=== PATIENT | female | born 1940 | race African-American/Black ===

== ENCOUNTER 2018-06-03 06:31 | Observation (INO) ==
[2018-05-30 12:48] LABS: Basophils % 0.1 % (0.0-0.8); Eosinophils # 0.1 10*3/uL (0.0-0.87); Eosinophils % 1.2 % (0.00-10.9); Hematocrit 33.8 VOL% (35.7-47.0); Hemoglobin 10.8 GM/DL (12.0-16.0); Immature Granulocytes % 0.3 %; Immature Granulocytes Absolute 0.02 #; Lymphocytes # 2.2 10*3/uL (1.4-4.0); Lymphocytes % 29.3 % (21.3-54.2); Mean Corpuscular Hemoglobin 26 PG (27-34); Mean Platelet Volume 10.7 FL (9.6-12.0); Monocytes # 0.8 10*3/uL (0.11-0.8); Monocytes % 10.1 % (1.7-12.7); Neutrophils # 4.4 10*3/uL (1.4-7.4); Platelet Count 287 T/CUMM (130-400); Red Blood Count 4.12 MC/CUMM (3.8-5.5); Red Cell Distribution Width 14.6 % (9.3-17.3); White Blood Count 7.4 T/CUMM (4-12)
[2018-05-30 12:56] LABS: PT Patient Result 10.7 SECS
[2018-05-30 13:20] LABS: Bilirubin,Total 0.5 MG/DL (0.2-1.0); Calcium 8.8 MG/DL (8.5-10.1); Osmolality,Calculated 282.1 MOS/KG (273-304); Potassium 4.2 MMOL/L (3.5-5.1); Total Protein 8.1 G/DL (6.4-8.3)
[2018-06-03] MEDS ORDERED: HEPARIN 5,000 UNIT/1 ML VIAL IV ONE (07:24)
[2018-06-03] MEDS ORDERED: ONDANSETRON 4 MG/2 ML VIAL IV ONE (07:24)
[2018-06-03] MEDS ORDERED: MIDAZOLAM 2 MG/2 ML VIAL IV ONE (07:24)
[2018-06-03] MEDS ORDERED: fentaNYL 100 MCG/2 ML VIAL IV ONE (07:24)
[2018-06-03] MEDS ORDERED: DIAZEPAM 5 MG TABLET PO ONE (07:24)
[2018-06-03] MEDS ORDERED: DIAZEPAM 5 MG TABLET ONE (07:41)
[2018-06-03] MEDS ORDERED: ACETYLCYSTEINE 600 MG CAPSULE ONE (07:44)
[2018-06-03] MEDS: ACETYLCYSTEINE 600 MG CAPSULE PO SCH ×2 (07:47→21:20)
[2018-06-03] MEDS: LACTATED RINGERS 1,000 ML IV SCH ×3 (08:00→22:22)
[2018-06-03] MEDS ORDERED: HEPARIN/NACL 0.9% 2 UNITS/ML 2,000 ML IV ONE (08:45)
[2018-06-03] MEDS ORDERED: fentaNYL 100 MCG/2 ML VIAL ONE (09:32)
[2018-06-03] MEDS ORDERED: MIDAZOLAM 2 MG/2 ML VIAL ONE (09:32)
[2018-06-03] MEDS ORDERED: HEPARIN 5,000 UNIT/1 ML VIAL ONE (09:32)
[2018-06-03] MEDS ORDERED: DEXTROSE 50% 25 GM/50 ML VIAL IV PRN ×2 (10:43→16:05)
[2018-06-03] MEDS ORDERED: GLUCAGON 1 MG VIAL IM PRN ×2 (10:43→16:05)
[2018-06-03] MEDS: INSULIN LISPRO 100 UNIT/ML SUBCUT SCH ×2 (17:44→21:21)
[2018-06-03] MEDS ORDERED: METFORMIN HCL PO SCH (21:00)
[2018-06-03] MEDS ORDERED: TRAVOPROST 0.004% OPH SOLN 2.5 ML BOTTLE BOTH EYES SCH (21:00)
[2018-06-03] MEDS ORDERED: CANAGLIFLOZIN PO SCH (21:00)
[2018-06-03] MEDS ORDERED: [UNRECOGNIZED DRUG - OTHER] PO SCH (21:00)
[2018-06-03] MEDS ORDERED: INSULIN GLARGINE 100 UNIT/ML SUBCUT SCH (21:00)
[2018-06-03] MEDS ORDERED: amLODIPine 10 MG TABLET PO SCH (21:00)
[2018-06-04] MEDS: LACTATED RINGERS 1,000 ML IV SCH ×3 (02:25→08:08)
[2018-06-04 07:10] LABS: Calcium 8.9 MG/DL (8.5-10.1); Osmolality,Calculated 281.4 MOS/KG (273-304); Potassium 3.9 MMOL/L (3.5-5.1)
[2018-06-04] MEDS: INSULIN LISPRO 100 UNIT/ML SUBCUT SCH (08:04)
[2018-06-04] MEDS: ACETYLCYSTEINE 600 MG CAPSULE PO SCH (08:07)
[2018-06-04] MEDS ORDERED: FERROUS SULFATE 325 MG TABLET PO SCH (09:00)
[2018-06-04] MEDS ORDERED: glipiZIDE 5 MG TABLET PO SCH (09:00)
[2018-06-04] MEDS ORDERED: ATORVASTATIN 20 MG TABLET PO SCH (09:00)
[2018-06-04] MEDS ORDERED: POTASSIUM CHLORIDE 20 MEQ TABLET PO SCH (09:00)
[2018-06-04 09:21] VITALS: BP 156/100
[2018-06-04] MEDS ORDERED: NON-FORMULARY MEDICATION (Alendronate Sodium [Fosamax] 70 MG) PO SCH (16:15)
[2018-06-10] MEDS ORDERED: ERGOCALCIFEROL 50,000 UNIT CAPSULE PO SCH (09:00)
== END 2018-06-04 11:05 | disposition home or self-care (01) ==
LOC: N.RAD 06:31 → N.3E 06:31
PROVIDERS: ADMIT Surgery; ATTEND Surgery

== ENCOUNTER 2018-06-15 08:25 | Inpatient (IN) ==
[2018-06-15 10:46] LABS: Basophils % 0.3 % (0.0-0.8); Eosinophils # 0.1 10*3/uL (0.0-0.87); Eosinophils % 1.3 % (0.00-10.9); Hematocrit 33.6 VOL% (35.7-47.0); Hemoglobin 10.8 GM/DL (12.0-16.0); Immature Granulocytes % 0.4 %; Immature Granulocytes Absolute 0.04 #; Lymphocytes # 2.1 10*3/uL (1.4-4.0); Lymphocytes % 22.7 % (21.3-54.2); Mean Corpuscular HGB Conc 32.1 GM/DL (32-36); Mean Corpuscular Hemoglobin 26 PG (27-34); Mean Corpuscular Volume 80.8 FL (87-102); Monocytes # 0.7 10*3/uL (0.11-0.8); Neutrophils # 6.2 10*3/uL (1.4-7.4); Neutrophils % 67.3 % (38.7-73.9); Platelet Count 407 T/CUMM (130-400); Red Blood Count 4.16 MC/CUMM (3.8-5.5); Red Cell Distribution Width 14.2 % (9.3-17.3); White Blood Count 9.2 T/CUMM (4-12)
[2018-06-15] MEDS ORDERED: DEXTROSE 50% 25 GM/50 ML VIAL IV PRN ×2 (10:55→12:59)
[2018-06-15] MEDS ORDERED: GLUCAGON 1 MG VIAL IM PRN ×2 (10:55→12:59)
[2018-06-15 11:12] LABS: Calcium 8.7 MG/DL (8.5-10.1); Osmolality,Calculated 282.7 MOS/KG (273-304)
[2018-06-15 11:19] LABS: Lactic Acid 1.2 MMOL/L (0.4-2.0)
[2018-06-15] MEDS ORDERED: HYDROmorphone 2 MG/1 ML VIAL IV PRN (12:59)
[2018-06-15] MEDS ORDERED: ONDANSETRON 4 MG/2 ML VIAL IV PRN (12:59)
[2018-06-15] MEDS ORDERED: PROMETHAZINE 25 MG/1 ML VIAL IM PRN (12:59)
[2018-06-15] MEDS ORDERED: ACETAMINOPHEN 325 MG TABLET PO PRN (12:59)
[2018-06-15] MEDS: SODIUM CHLORIDE 0.9% 1,000 ML IV SCH (14:40)
[2018-06-15] MEDS: INSULIN REGULAR 100 UNIT/ML SUBCUT SCH ×3 (15:48→20:42)
[2018-06-15] MEDS: TRAVOPROST 0.004% OPH SOLN 2.5 ML BOTTLE BOTH EYES SCH (20:42)
[2018-06-15] MEDS: amLODIPine 10 MG TABLET PO SCH (20:42)
[2018-06-15] MEDS: MEGESTROL 40 MG TABLET PO SCH (20:42)
[2018-06-16] MEDS: SODIUM CHLORIDE 0.9% 1,000 ML IV SCH (00:51)
[2018-06-16] MEDS: ENOXAPARIN 40 MG/0.4 ML SYRINGE SUBCUT SCH (05:33)
[2018-06-16 06:17] LABS: Basophils % 0.2 % (0.0-0.8); Eosinophils # 0.2 10*3/uL (0.0-0.87); Eosinophils % 2.2 % (0.00-10.9); Hematocrit 30.4 VOL% (35.7-47.0); Hemoglobin 9.8 GM/DL (12.0-16.0); Immature Granulocytes % 0.4 %; Immature Granulocytes Absolute 0.04 #; Lymphocytes # 2.9 10*3/uL (1.4-4.0); Lymphocytes % 30.4 % (21.3-54.2); Mean Corpuscular HGB Conc 32.2 GM/DL (32-36); Mean Corpuscular Hemoglobin 26 PG (27-34); Mean Corpuscular Volume 81.1 FL (87-102); Mean Platelet Volume 10.2 FL (9.6-12.0); Monocytes # 0.8 10*3/uL (0.11-0.8); Monocytes % 8.4 % (1.7-12.7); Neutrophils # 5.5 10*3/uL (1.4-7.4); Neutrophils % 58.4 % (38.7-73.9); Platelet Count 367 T/CUMM (130-400); Red Blood Count 3.75 MC/CUMM (3.8-5.5); Red Cell Distribution Width 14.3 % (9.3-17.3); White Blood Count 9.4 T/CUMM (4-12)
[2018-06-16 06:31] LABS: Calcium 8.5 MG/DL (8.5-10.1); Osmolality,Calculated 287.3 MOS/KG (273-304); Potassium 3.9 MMOL/L (3.5-5.1)
[2018-06-16] MEDS: INSULIN REGULAR 100 UNIT/ML SUBCUT SCH ×4 (07:24→21:02)
[2018-06-16] MEDS ORDERED: CLINDAMYCIN INJ 900 MG in PREMIX 1 EACH IV ONE (08:42)
[2018-06-16] MEDS: VALSARTAN/HCTZ 160-12.5 MG TABLET PO SCH (09:28)
[2018-06-16] MEDS: LOSARTAN/HCTZ 50-12.5 MG TABLET PO SCH (09:28)
[2018-06-16] MEDS ORDERED: ERGOCALCIFEROL 50,000 UNIT CAPSULE PO SCH (10:30)
[2018-06-16] MEDS ORDERED: ePHEDrine 50 MG/ML AMP ONE (10:56)
[2018-06-16] MEDS ORDERED: SODIUM CHLORIDE 0.9% 250 ML IV ONE (10:56)
[2018-06-16] MEDS ORDERED: KETAMINE 500 MG/10 ML VIAL ONE (10:56)
[2018-06-16] MEDS ORDERED: PROPOFOL 200 MG/20 ML VIAL IV ONE (10:56)
[2018-06-16] MEDS: FERROUS SULFATE 325 MG TABLET PO SCH (14:20)
[2018-06-16] MEDS: MEGESTROL 40 MG TABLET PO SCH ×2 (14:21→21:02)
[2018-06-16] MEDS: POTASSIUM CHLORIDE 20 MEQ TABLET PO SCH (14:21)
[2018-06-16] MEDS: PANTOPRAZOLE 40 MG TABLET PO SCH (14:21)
[2018-06-16] MEDS: ATORVASTATIN 20 MG TABLET PO SCH (14:21)
[2018-06-16] MEDS: amLODIPine 10 MG TABLET PO SCH (21:01)
[2018-06-16] MEDS: TRAVOPROST 0.004% OPH SOLN 2.5 ML BOTTLE BOTH EYES SCH (21:02)
[2018-06-17] MEDS: ENOXAPARIN 40 MG/0.4 ML SYRINGE SUBCUT SCH (03:52)
[2018-06-17] MEDS: INSULIN REGULAR 100 UNIT/ML SUBCUT SCH ×2 (07:02→13:10)
[2018-06-17] MEDS: VALSARTAN/HCTZ 160-12.5 MG TABLET PO SCH (10:13)
[2018-06-17] MEDS: ATORVASTATIN 20 MG TABLET PO SCH (10:14)
[2018-06-17] MEDS: POTASSIUM CHLORIDE 20 MEQ TABLET PO SCH (10:14)
[2018-06-17] MEDS: FERROUS SULFATE 325 MG TABLET PO SCH (10:14)
[2018-06-17] MEDS: LOSARTAN/HCTZ 50-12.5 MG TABLET PO SCH (10:14)
[2018-06-17] MEDS: MEGESTROL 40 MG TABLET PO SCH (10:15)
[2018-06-17] MEDS: PANTOPRAZOLE 40 MG TABLET PO SCH (10:16)
[2018-06-17 11:53] VITALS: BP 142/60
[2018-06-18] MEDS ORDERED: Alendronate Sodium [Fosamax] 70 MG PO SCH (10:30)
== END 2018-06-17 13:55 | disposition home health service (06) | DRG 256 ==
LOC: N.ED 08:25 → N.EDINP 10:26 → N.3E 12:55
PROVIDERS: ADMIT Surgery; ATTEND Surgery

== ENCOUNTER 2018-06-29 12:40 | Inpatient (IN) ==
[2018-06-29] MEDS ORDERED: GLUCAGON 1 MG VIAL IM PRN (15:06)
[2018-06-29] MEDS ORDERED: ACETAMINOPHEN 325 MG TABLET PO PRN (15:06)
[2018-06-29] MEDS ORDERED: ONDANSETRON 4 MG/2 ML VIAL IV PRN (15:06)
[2018-06-29] MEDS ORDERED: DEXTROSE 50% 25 GM/50 ML VIAL IV PRN (15:06)
[2018-06-29 17:08] LABS: Basophils % 0.1 % (0.0-0.8); Eosinophils # 0.1 10*3/uL (0.0-0.87); Eosinophils % 1.3 % (0.00-10.9); Hematocrit 29.7 VOL% (35.7-47.0); Hemoglobin 9.6 GM/DL (12.0-16.0); Immature Granulocytes % 0.4 %; Immature Granulocytes Absolute 0.04 #; Lymphocytes # 2.3 10*3/uL (1.4-4.0); Lymphocytes % 23.3 % (21.3-54.2); Mean Corpuscular HGB Conc 32.3 GM/DL (32-36); Mean Corpuscular Hemoglobin 25 PG (27-34); Mean Corpuscular Volume 77.7 FL (87-102); Mean Platelet Volume 9.3 FL (9.6-12.0); Monocytes # 0.9 10*3/uL (0.11-0.8); Monocytes % 8.9 % (1.7-12.7); Neutrophils # 6.4 10*3/uL (1.4-7.4); Platelet Count 575 T/CUMM (130-400); Red Blood Count 3.82 MC/CUMM (3.8-5.5); Red Cell Distribution Width 14.7 % (9.3-17.3); White Blood Count 9.7 T/CUMM (4-12)
[2018-06-29 17:27] LABS: Alanine Aminotransferase 13 U/L (13-56); Albumin 2.5 G/DL (3.4-5.0); Alkaline Phosphatase 69 U/L (45-117); Aspartate Amino Transferase 15 U/L (0-37); Bilirubin,Total < 0.39 MG/DL (0.2-1.0); Blood Urea Nitrogen 19 MG/DL (7-18); Glucose 155 MG/DL (74-106); Potassium 4.5 MMOL/L (3.5-5.1); Sodium 136 MMOL/L (136-145); Total Protein 7.4 G/DL (6.4-8.3)
[2018-06-29] MEDS: LACTATED RINGERS 1,000 ML IV SCH (18:42)
[2018-06-29] MEDS ORDERED: diphenhydrAMINE CAP 25 MG CAPSULE PO SCH (22:30)
[2018-06-29] MEDS: diphenhydrAMINE CAP 25 MG CAPSULE PO PRN (22:30)
[2018-06-30] MEDS: cefOXitin 2,000 MG in SYRINGE 1 EACH IV SCH ×2 (01:03→10:17)
[2018-06-30 06:08] LABS: Bilirubin,Total 0.6 MG/DL (0.2-1.0); Calcium 8.9 MG/DL (8.5-10.1); Osmolality,Calculated 279.8 MOS/KG (273-304); Potassium 4.2 MMOL/L (3.5-5.1); Total Protein 7.3 G/DL (6.4-8.3)
[2018-06-30 06:30] LABS: Apearance,Urine CLEAR (Clear); Bilirubin,Urine Negative (Negative); Blood, Urine Small mg/dL (Negative); Glucose,Urine (UA) >=500 mg/dL (Negative); Ketones,Urine Negative (Negative); Mucus,Urine Occasional /LPF (Occasional); Nitrite,Urine Negative (Negative); Protein,Urine Negative; RBC,Urine 5 /HPF (0-4); Squamous Epithelial Cell,Urine Occasional /HPF (0-10); Urine Color Yellow (Yellow); Urine Specific Gravity 1.021 (1.001-1.035); Urine Urobilinogen < 2.0 EU/DL (0.2-1.0); WBC,Urine 5 /HPF (0-6)
[2018-06-30] MEDS: LACTATED RINGERS 1,000 ML IV SCH ×2 (07:55→20:12)
[2018-06-30] MEDS: ENOXAPARIN 40 MG/0.4 ML SYRINGE SUBCUT SCH (08:31)
[2018-06-30] MEDS ORDERED: CIPROFLOXACIN INJ 400 MG in PREMIX 1 EACH IV SCH (10:30)
[2018-06-30] MEDS: PANTOPRAZOLE 40 MG TABLET PO SCH ×2 (10:35→13:41)
[2018-06-30] MEDS ORDERED: MORPHINE 4 MG/1 ML VIAL ONE (11:10)
[2018-06-30] MEDS ORDERED: MORPHINE 4 MG/1 ML VIAL IV PRN (12:08)
[2018-06-30] MEDS: glipiZIDE 5 MG TABLET PO SCH (13:40)
[2018-06-30] MEDS: FERROUS SULFATE 325 MG TABLET PO SCH (13:40)
[2018-06-30] MEDS: CLINDAMYCIN INJ 900 MG in PREMIX 1 EACH IV SCH ×2 (13:40→20:28)
[2018-06-30] MEDS: MEGESTROL 40 MG TABLET PO SCH ×2 (13:40→20:27)
[2018-06-30] MEDS: LOSARTAN/HCTZ 50-12.5 MG TABLET PO SCH (13:40)
[2018-06-30] MEDS: POTASSIUM CHLORIDE 20 MEQ TABLET PO SCH (13:40)
[2018-06-30] MEDS: ATORVASTATIN 20 MG TABLET PO SCH (13:41)
[2018-06-30] MEDS: INSULIN LISPRO 100 UNIT/ML SUBCUT SCH (17:24)
[2018-06-30] MEDS: PHENAZOPYRIDINE 95 MG TABLET PO SCH (17:24)
[2018-06-30] MEDS: amLODIPine 10 MG TABLET PO SCH (20:27)
[2018-06-30] MEDS: TRAVOPROST 0.004% OPH SOLN 2.5 ML BOTTLE BOTH EYES SCH (20:28)
[2018-07-01] MEDS: LACTATED RINGERS 1,000 ML IV SCH ×2 (03:39→13:21)
[2018-07-01] MEDS: CLINDAMYCIN INJ 900 MG in PREMIX 1 EACH IV SCH ×3 (03:39→20:42)
[2018-07-01 06:31] LABS: Basophils % 0.2 % (0.0-0.8); Eosinophils # 0.3 10*3/uL (0.0-0.87); Eosinophils % 2.8 % (0.00-10.9); Hematocrit 26.6 VOL% (35.7-47.0); Hemoglobin 8.5 GM/DL (12.0-16.0); Immature Granulocytes % 0.4 %; Immature Granulocytes Absolute 0.04 #; Lymphocytes # 3.1 10*3/uL (1.4-4.0); Lymphocytes % 29.7 % (21.3-54.2); Mean Corpuscular Hemoglobin 25 PG (27-34); Mean Corpuscular Volume 78.2 FL (87-102); Mean Platelet Volume 9.4 FL (9.6-12.0); Monocytes # 0.9 10*3/uL (0.11-0.8); Monocytes % 8.2 % (1.7-12.7); Neutrophils # 6.2 10*3/uL (1.4-7.4); Neutrophils % 58.7 % (38.7-73.9); Platelet Count 530 T/CUMM (130-400); Red Cell Distribution Width 14.8 % (9.3-17.3); White Blood Count 10.6 T/CUMM (4-12)
[2018-07-01 07:06] LABS: Calcium 8.5 MG/DL (8.5-10.1); Osmolality,Calculated 278.4 MOS/KG (273-304); Potassium 4.3 MMOL/L (3.5-5.1)
[2018-07-01 07:20] LABS: Risk Ratio 2.3; Thyroid Stimulating Hormone 1.73 uIU/ml (0.358-3.74)
[2018-07-01] MEDS: INSULIN LISPRO 100 UNIT/ML SUBCUT SCH ×2 (07:43→17:02)
[2018-07-01] MEDS: PHENAZOPYRIDINE 95 MG TABLET PO SCH ×2 (07:43→11:34)
[2018-07-01] MEDS: glipiZIDE 5 MG TABLET PO SCH (08:02)
[2018-07-01] MEDS: FERROUS SULFATE 325 MG TABLET PO SCH (08:02)
[2018-07-01] MEDS: POTASSIUM CHLORIDE 20 MEQ TABLET PO SCH (08:02)
[2018-07-01] MEDS: ATORVASTATIN 20 MG TABLET PO SCH (08:02)
[2018-07-01] MEDS: PANTOPRAZOLE 40 MG TABLET PO SCH (08:03)
[2018-07-01] MEDS: MEGESTROL 40 MG TABLET PO SCH (08:03)
[2018-07-01] MEDS: ENOXAPARIN 40 MG/0.4 ML SYRINGE SUBCUT SCH (08:03)
[2018-07-01] MEDS: LOSARTAN/HCTZ 50-12.5 MG TABLET PO SCH (08:29)
[2018-07-01] MEDS: MORPHINE 4 MG/1 ML VIAL IV PRN (08:29)
[2018-07-01] MEDS ORDERED: ERGOCALCIFEROL 50,000 UNIT CAPSULE PO SCH (09:00)
[2018-07-01] MEDS ORDERED: CIPROFLOXACIN INJ 400 MG in PREMIX 1 EACH IV SCH (09:00)
[2018-07-01] MEDS: GABAPENTIN 100 MG CAPSULE PO SCH ×2 (11:34→20:41)
[2018-07-01] MEDS ORDERED: TUBERCULIN SKIN TEST 0.1 ML SYRINGE INTRADERM ONE (12:00)
[2018-07-01] MEDS: cefTRIAXone 1,000 MG in SYRINGE 1 EACH IV SCH (13:22)
[2018-07-01] MEDS ORDERED: BUPIVACAINE MPF 0.25% 30 ML VIAL ONE (14:48)
[2018-07-01] MEDS ORDERED: LIDOCAINE 1% 20 ML VIAL ONE (14:48)
[2018-07-01] MEDS ORDERED: PROPOFOL 200 MG/20 ML VIAL IV ONE (15:48)
[2018-07-01] MEDS ORDERED: SEVOFLURANE 1 UNIT/15 MINUTE INH ONE (15:48)
[2018-07-01] MEDS ORDERED: fentaNYL 100 MCG/2 ML VIAL ONE (15:48)
[2018-07-01] MEDS ORDERED: DEXAMETHASONE 10 MG/1 ML VIAL ONE (15:49)
[2018-07-01] MEDS ORDERED: ONDANSETRON 4 MG/2 ML VIAL ONE (15:49)
[2018-07-01] MEDS: amLODIPine 10 MG TABLET PO SCH (20:41)
[2018-07-01] MEDS: METOPROLOL TARTRATE 50 MG TABLET PO SCH (20:41)
[2018-07-01] MEDS: TRAVOPROST 0.004% OPH SOLN 2.5 ML BOTTLE BOTH EYES SCH (20:42)
[2018-07-02] MEDS: CLINDAMYCIN INJ 900 MG in PREMIX 1 EACH IV SCH ×3 (03:25→20:48)
[2018-07-02 07:29] LABS: Basophils % 0.1 % (0.0-0.8); Hematocrit 26.1 VOL% (35.7-47.0); Hemoglobin 8.5 GM/DL (12.0-16.0); Immature Granulocytes % 0.6 %; Immature Granulocytes Absolute 0.06 #; Lymphocytes # 1.3 10*3/uL (1.4-4.0); Lymphocytes % 13.1 % (21.3-54.2); Mean Corpuscular HGB Conc 32.6 GM/DL (32-36); Mean Corpuscular Hemoglobin 25 PG (27-34); Mean Corpuscular Volume 75.7 FL (87-102); Mean Platelet Volume 9.4 FL (9.6-12.0); Monocytes # 0.6 10*3/uL (0.11-0.8); Monocytes % 6.2 % (1.7-12.7); Neutrophils # 7.8 10*3/uL (1.4-7.4); Platelet Count 536 T/CUMM (130-400); Red Blood Count 3.45 MC/CUMM (3.8-5.5); Red Cell Distribution Width 15.1 % (9.3-17.3); White Blood Count 9.7 T/CUMM (4-12)
[2018-07-02 08:02] LABS: Calcium 8.5 MG/DL (8.5-10.1); Osmolality,Calculated 280.8 MOS/KG (273-304); Potassium 4.5 MMOL/L (3.5-5.1)
[2018-07-02] MEDS: ENOXAPARIN 40 MG/0.4 ML SYRINGE SUBCUT SCH (08:42)
[2018-07-02] MEDS: INSULIN LISPRO 100 UNIT/ML SUBCUT SCH ×2 (08:43→17:33)
[2018-07-02] MEDS: FERROUS SULFATE 325 MG TABLET PO SCH (08:44)
[2018-07-02] MEDS: METOPROLOL TARTRATE 50 MG TABLET PO SCH ×2 (08:44→20:22)
[2018-07-02] MEDS: glipiZIDE 5 MG TABLET PO SCH (08:44)
[2018-07-02] MEDS: GABAPENTIN 100 MG CAPSULE PO SCH ×2 (08:44→20:32)
[2018-07-02] MEDS: ATORVASTATIN 20 MG TABLET PO SCH (08:44)
[2018-07-02] MEDS: PANTOPRAZOLE 40 MG TABLET PO SCH (08:44)
[2018-07-02] MEDS: cefTRIAXone 1,000 MG in SYRINGE 1 EACH IV SCH (08:53)
[2018-07-02] MEDS ORDERED: NON-FORMULARY MEDICATION (Alendronate Sodium [Fosamax] 70 MG) PO SCH (12:02)
[2018-07-02] MEDS: POTASSIUM CHLORIDE 20 MEQ TABLET PO SCH (13:59)
[2018-07-02] MEDS: amLODIPine 10 MG TABLET PO SCH (20:22)
[2018-07-02] MEDS: INSULIN GLARGINE 100 UNIT/ML SUBCUT SCH (20:22)
[2018-07-02] MEDS: TRAVOPROST 0.004% OPH SOLN 2.5 ML BOTTLE BOTH EYES SCH (20:32)
[2018-07-03] MEDS: CLINDAMYCIN INJ 900 MG in PREMIX 1 EACH IV SCH ×3 (04:34→22:16)
[2018-07-03] MEDS: INSULIN LISPRO 100 UNIT/ML SUBCUT SCH ×2 (09:39→16:58)
[2018-07-03] MEDS: POTASSIUM CHLORIDE 20 MEQ TABLET PO SCH (09:41)
[2018-07-03] MEDS: PANTOPRAZOLE 40 MG TABLET PO SCH (09:41)
[2018-07-03] MEDS: glipiZIDE 5 MG TABLET PO SCH (09:42)
[2018-07-03] MEDS: cefTRIAXone 1,000 MG in SYRINGE 1 EACH IV SCH (09:42)
[2018-07-03] MEDS: METOPROLOL TARTRATE 50 MG TABLET PO SCH ×2 (09:42→22:16)
[2018-07-03] MEDS: ATORVASTATIN 20 MG TABLET PO SCH (09:42)
[2018-07-03] MEDS: FERROUS SULFATE 325 MG TABLET PO SCH (09:42)
[2018-07-03] MEDS: GABAPENTIN 100 MG CAPSULE PO SCH ×2 (09:42→22:16)
[2018-07-03] MEDS: ENOXAPARIN 40 MG/0.4 ML SYRINGE SUBCUT SCH (09:43)
[2018-07-03] MEDS ORDERED: MAGNESIUM HYDROXIDE SUSP 30 ML UDCUP PO ONE (10:56)
[2018-07-03] MEDS: MORPHINE 4 MG/1 ML VIAL IV PRN (17:02)
[2018-07-03] MEDS: amLODIPine 10 MG TABLET PO SCH (22:16)
[2018-07-03] MEDS: TRAVOPROST 0.004% OPH SOLN 2.5 ML BOTTLE BOTH EYES SCH (22:20)
[2018-07-03] MEDS: INSULIN GLARGINE 100 UNIT/ML SUBCUT SCH (22:42)
[2018-07-04] MEDS: MORPHINE 4 MG/1 ML VIAL IV PRN ×2 (03:52→06:20)
[2018-07-04 05:24] LABS: Basophils % 0.2 % (0.0-0.8); Eosinophils # 0.3 10*3/uL (0.0-0.87); Hematocrit 26.4 VOL% (35.7-47.0); Hemoglobin 8.6 GM/DL (12.0-16.0); Immature Granulocytes % 0.4 %; Immature Granulocytes Absolute 0.04 #; Lymphocytes # 3.4 10*3/uL (1.4-4.0); Lymphocytes % 35.5 % (21.3-54.2); Mean Corpuscular HGB Conc 32.6 GM/DL (32-36); Mean Corpuscular Hemoglobin 25 PG (27-34); Mean Corpuscular Volume 76.7 FL (87-102); Mean Platelet Volume 9.7 FL (9.6-12.0); Monocytes % 10.3 % (1.7-12.7); Neutrophils # 4.8 10*3/uL (1.4-7.4); Neutrophils % 50.6 % (38.7-73.9); Platelet Count 521 T/CUMM (130-400); Red Blood Count 3.44 MC/CUMM (3.8-5.5); Red Cell Distribution Width 15.2 % (9.3-17.3); White Blood Count 9.5 T/CUMM (4-12)
[2018-07-04 05:55] LABS: Calcium 8.3 MG/DL (8.5-10.1); Osmolality,Calculated 280.4 MOS/KG (273-304); Potassium 3.9 MMOL/L (3.5-5.1)
[2018-07-04] MEDS: CLINDAMYCIN INJ 900 MG in PREMIX 1 EACH IV SCH ×2 (06:25→12:45)
[2018-07-04] MEDS: INSULIN LISPRO 100 UNIT/ML SUBCUT SCH ×2 (07:56→17:53)
[2018-07-04] MEDS: glipiZIDE 5 MG TABLET PO SCH (09:11)
[2018-07-04] MEDS: PANTOPRAZOLE 40 MG TABLET PO SCH (09:11)
[2018-07-04] MEDS: METOPROLOL TARTRATE 50 MG TABLET PO SCH (09:11)
[2018-07-04] MEDS: ATORVASTATIN 20 MG TABLET PO SCH (09:11)
[2018-07-04] MEDS: ENOXAPARIN 40 MG/0.4 ML SYRINGE SUBCUT SCH (09:12)
[2018-07-04] MEDS: cefTRIAXone 1,000 MG in SYRINGE 1 EACH IV SCH (09:12)
[2018-07-04] MEDS: FERROUS SULFATE 325 MG TABLET PO SCH (09:12)
[2018-07-04] MEDS: POTASSIUM CHLORIDE 20 MEQ TABLET PO SCH (09:12)
[2018-07-04] MEDS: GABAPENTIN 100 MG CAPSULE PO SCH ×2 (09:12→21:26)
[2018-07-04] MEDS: CIPROFLOXACIN INJ 400 MG in PREMIX 1 EACH IV SCH (17:19)
[2018-07-04] MEDS: TRAVOPROST 0.004% OPH SOLN 2.5 ML BOTTLE BOTH EYES SCH (21:30)
[2018-07-04] MEDS: INSULIN GLARGINE 100 UNIT/ML SUBCUT SCH (21:32)
[2018-07-04] MEDS: METOPROLOL TARTRATE 100 MG TABLET PO SCH (21:46)
[2018-07-04] MEDS: amLODIPine 10 MG TABLET PO SCH (21:49)
[2018-07-05] MEDS: INSULIN LISPRO 100 UNIT/ML SUBCUT SCH ×2 (07:35→17:23)
[2018-07-05] MEDS: CIPROFLOXACIN INJ 400 MG in PREMIX 1 EACH IV SCH ×2 (08:37→16:12)
[2018-07-05] MEDS: GABAPENTIN 100 MG CAPSULE PO SCH (08:38)
[2018-07-05] MEDS: POTASSIUM CHLORIDE 20 MEQ TABLET PO SCH (08:38)
[2018-07-05] MEDS: ATORVASTATIN 20 MG TABLET PO SCH (08:38)
[2018-07-05] MEDS: glipiZIDE 5 MG TABLET PO SCH (08:38)
[2018-07-05] MEDS: PANTOPRAZOLE 40 MG TABLET PO SCH (08:38)
[2018-07-05] MEDS: METOPROLOL TARTRATE 100 MG TABLET PO SCH (08:38)
[2018-07-05] MEDS: FERROUS SULFATE 325 MG TABLET PO SCH (08:39)
[2018-07-05] MEDS: cefTRIAXone 1,000 MG in SYRINGE 1 EACH IV SCH (08:39)
[2018-07-05] MEDS: ENOXAPARIN 40 MG/0.4 ML SYRINGE SUBCUT SCH (08:39)
[2018-07-05] MEDS: diphenhydrAMINE CAP 25 MG CAPSULE PO PRN (18:21)
[2018-07-05] MEDS ORDERED: MELATONIN 3 MG TABLET PO PRN (20:20)
[2018-07-06] MEDS: TRAVOPROST 0.004% OPH SOLN 2.5 ML BOTTLE BOTH EYES SCH ×2 (00:17→21:34)
[2018-07-06] MEDS: INSULIN GLARGINE 100 UNIT/ML SUBCUT SCH ×2 (00:17→21:33)
[2018-07-06] MEDS: METOPROLOL TARTRATE 100 MG TABLET PO SCH ×3 (00:17→21:34)
[2018-07-06] MEDS: GABAPENTIN 100 MG CAPSULE PO SCH ×3 (00:17→21:34)
[2018-07-06] MEDS: amLODIPine 10 MG TABLET PO SCH ×2 (00:18→21:34)
[2018-07-06] MEDS: MORPHINE 4 MG/1 ML VIAL IV PRN ×2 (03:31→13:37)
[2018-07-06] MEDS: diphenhydrAMINE CAP 25 MG CAPSULE PO PRN ×2 (03:32→13:38)
[2018-07-06] MEDS: INSULIN LISPRO 100 UNIT/ML SUBCUT SCH ×2 (07:29→16:06)
[2018-07-06] MEDS: cefTRIAXone 1,000 MG in SYRINGE 1 EACH IV SCH (08:26)
[2018-07-06] MEDS: PANTOPRAZOLE 40 MG TABLET PO SCH (08:27)
[2018-07-06] MEDS: POTASSIUM CHLORIDE 20 MEQ TABLET PO SCH (08:27)
[2018-07-06] MEDS: ATORVASTATIN 20 MG TABLET PO SCH (08:27)
[2018-07-06] MEDS: glipiZIDE 5 MG TABLET PO SCH (08:27)
[2018-07-06] MEDS: ENOXAPARIN 40 MG/0.4 ML SYRINGE SUBCUT SCH (08:28)
[2018-07-06] MEDS: CIPROFLOXACIN INJ 400 MG in PREMIX 1 EACH IV SCH ×2 (08:28→16:27)
[2018-07-06] MEDS: FERROUS SULFATE 325 MG TABLET PO SCH (08:28)
[2018-07-07] MEDS: diphenhydrAMINE CAP 25 MG CAPSULE PO PRN (01:15)
[2018-07-07] MEDS: MORPHINE 4 MG/1 ML VIAL IV PRN (04:39)
[2018-07-07] MEDS: CIPROFLOXACIN INJ 400 MG in PREMIX 1 EACH IV SCH (04:41)
[2018-07-07] MEDS ORDERED: AMOXICILLIN/CLAV 875 MG TABLET PO SCH (07:00)
[2018-07-07] MEDS: POTASSIUM CHLORIDE 20 MEQ TABLET PO SCH (08:59)
[2018-07-07] MEDS: GABAPENTIN 100 MG CAPSULE PO SCH (08:59)
[2018-07-07] MEDS: ENOXAPARIN 40 MG/0.4 ML SYRINGE SUBCUT SCH (08:59)
[2018-07-07] MEDS: FERROUS SULFATE 325 MG TABLET PO SCH (09:00)
[2018-07-07] MEDS: PANTOPRAZOLE 40 MG TABLET PO SCH (09:00)
[2018-07-07] MEDS ORDERED: CIPROFLOXACIN 500 MG TABLET PO SCH (09:00)
[2018-07-07] MEDS: ATORVASTATIN 20 MG TABLET PO SCH (09:00)
[2018-07-07] MEDS: METOPROLOL TARTRATE 100 MG TABLET PO SCH (09:00)
[2018-07-07] MEDS: glipiZIDE 5 MG TABLET PO SCH (09:00)
[2018-07-07] MEDS ORDERED: DOXYCYCLINE HYCLATE 100 MG CAPSULE PO SCH (09:00)
[2018-07-07] MEDS: INSULIN LISPRO 100 UNIT/ML SUBCUT SCH (09:56)
[2018-07-07 13:33] VITALS: BP 144/62
== END 2018-07-07 13:30 | DRG 464 ==
LOC: N.ED 12:40 → N.EDINP 15:06 → N.2E 18:04
PROVIDERS: ADMIT Surgery; ATTEND Surgery

== ENCOUNTER 2018-07-17 12:25 | Inpatient (IN) ==
[2018-07-17] MEDS ORDERED: DEXTROSE 50% 25 GM/50 ML VIAL IV PRN (14:32)
[2018-07-17] MEDS ORDERED: GLUCAGON 1 MG VIAL IM PRN (14:32)
[2018-07-17] MEDS ORDERED: PROMETHAZINE 25 MG/1 ML VIAL IM PRN (14:32)
[2018-07-17] MEDS ORDERED: ONDANSETRON 4 MG/2 ML VIAL IV PRN (14:32)
[2018-07-17] MEDS ORDERED: ACETAMINOPHEN 325 MG TABLET PO PRN (14:32)
[2018-07-17] MEDS ORDERED: MORPHINE 4 MG/1 ML VIAL IV PRN (15:07)
[2018-07-17 15:53] LABS: Basophils % 0.2 % (0.0-0.8); Eosinophils # 0.2 10*3/uL (0.0-0.87); Eosinophils % 1.7 % (0.00-10.9); Hematocrit 28.5 VOL% (35.7-47.0); Hemoglobin 9.5 GM/DL (12.0-16.0); Immature Granulocytes % 0.4 %; Immature Granulocytes Absolute 0.04 #; Lymphocytes % 19.1 % (21.3-54.2); Mean Corpuscular HGB Conc 33.3 GM/DL (32-36); Mean Corpuscular Hemoglobin 26 PG (27-34); Mean Corpuscular Volume 78.7 FL (87-102); Mean Platelet Volume 9.8 FL (9.6-12.0); Monocytes # 0.9 10*3/uL (0.11-0.8); Monocytes % 8.6 % (1.7-12.7); Neutrophils # 7.4 10*3/uL (1.4-7.4); Platelet Count 395 T/CUMM (130-400); Red Blood Count 3.62 MC/CUMM (3.8-5.5); Red Cell Distribution Width 17.2 % (9.3-17.3); White Blood Count 10.6 T/CUMM (4-12)
[2018-07-17 16:18] LABS: % Iron Saturation 9.2 % (18-50); Ferritin 330.3 ng/ml (8-252)
[2018-07-17 16:25] LABS: Albumin 2.2 G/DL (3.4-5.0); Bilirubin,Total 0.5 MG/DL (0.2-1.0); Osmolality,Calculated 281.3 MOS/KG (273-304); Potassium 3.9 MMOL/L (3.5-5.1); Thyroid Stimulating Hormone 1.21 uIU/ml (0.358-3.74); Total Protein 7.1 G/DL (6.4-8.3)
[2018-07-17 16:26] LABS: Folate 15.9 NG/ML (5.4-24.0)
[2018-07-17] MEDS: INSULIN LISPRO 100 UNIT/ML SUBCUT SCH ×2 (18:07→21:44)
[2018-07-17] MEDS ORDERED: LEVOFLOXACIN 500 MG TABLET PO ONE (18:12)
[2018-07-17] MEDS ORDERED: ALBUTEROL/IPRATROPIUM 3 ML NEB RESP TX PRN (18:56)
[2018-07-17] MEDS: ENOXAPARIN 40 MG/0.4 ML SYRINGE SUBCUT SCH (21:45)
[2018-07-18 05:38] LABS: Basophils % 0.3 % (0.0-0.8); Eosinophils # 0.2 10*3/uL (0.0-0.87); Eosinophils % 1.7 % (0.00-10.9); Hematocrit 27.1 VOL% (35.7-47.0); Hemoglobin 8.5 GM/DL (12.0-16.0); Immature Granulocytes % 0.4 %; Immature Granulocytes Absolute 0.04 #; Lymphocytes # 2.4 10*3/uL (1.4-4.0); Lymphocytes % 23.7 % (21.3-54.2); Mean Corpuscular HGB Conc 31.4 GM/DL (32-36); Mean Corpuscular Hemoglobin 25 PG (27-34); Mean Corpuscular Volume 80.2 FL (87-102); Mean Platelet Volume 10.2 FL (9.6-12.0); Monocytes % 9.7 % (1.7-12.7); Neutrophils # 6.5 10*3/uL (1.4-7.4); Neutrophils % 64.2 % (38.7-73.9); Platelet Count 369 T/CUMM (130-400); Red Blood Count 3.38 MC/CUMM (3.8-5.5); Red Cell Distribution Width 17.4 % (9.3-17.3); White Blood Count 10.1 T/CUMM (4-12)
[2018-07-18 05:56] LABS: Albumin 2.1 G/DL (3.4-5.0); Bilirubin,Total 0.7 MG/DL (0.2-1.0); Calcium 8.1 MG/DL (8.5-10.1); Osmolality,Calculated 280.3 MOS/KG (273-304); Potassium 4.3 MMOL/L (3.5-5.1); Total Protein 6.9 G/DL (6.4-8.3)
[2018-07-18 05:57] LABS: Risk Ratio 1.87
[2018-07-18] MEDS: CLINDAMYCIN INJ 900 MG in PREMIX 1 EACH IV ONE ×2 (07:06→08:15)
[2018-07-18] MEDS ORDERED: ACETAMINOPHEN 325 MG TABLET PO PRN (07:23)
[2018-07-18] MEDS ORDERED: ZINC OXIDE PASTE 113 GM TUBE TOP PRN (07:23)
[2018-07-18] MEDS ORDERED: METOPROLOL TARTRATE 5 MG/5 ML VIAL IV ONE (07:54)
[2018-07-18 08:52] LABS: Apearance,Urine CLEAR (Clear); Bilirubin,Urine Negative (Negative); Blood, Urine Small mg/dL (Negative); Glucose,Urine (UA) Negative (Negative); Ketones,Urine Negative (Negative); Nitrite,Urine Negative (Negative); Protein,Urine 30 MG/DL; RBC,Urine 4 /HPF (0-4); Squamous Epithelial Cell,Urine Occasional /HPF (0-10); Urine Color Straw (Yellow); Urine Urobilinogen < 2.0 EU/DL (0.2-1.0); WBC,Urine <1 /HPF (0-6)
[2018-07-18] MEDS ORDERED: GABAPENTIN 100 MG CAPSULE PO SCH (09:00)
[2018-07-18] MEDS ORDERED: METOPROLOL TARTRATE 50 MG TABLET PO SCH (09:00)
[2018-07-18] MEDS ORDERED: HYDROmorphone 2 MG/1 ML VIAL ONE (09:36)
[2018-07-18] MEDS ORDERED: ONDANSETRON 4 MG/2 ML VIAL ONE ×2 (09:36→09:43)
[2018-07-18] MEDS: HYDROmorphone 2 MG/1 ML VIAL IV PRN ×7 (09:40→20:20)
[2018-07-18] MEDS ORDERED: SEVOFLURANE 1 UNIT/15 MINUTE INH ONE (09:42)
[2018-07-18] MEDS ORDERED: fentaNYL 100 MCG/2 ML VIAL ONE (09:42)
[2018-07-18] MEDS ORDERED: PROPOFOL 200 MG/20 ML VIAL IV ONE (09:42)
[2018-07-18] MEDS ORDERED: ACETAMINOPHEN 1,000 MG/100 ML VIAL IV ONE (09:43)
[2018-07-18] MEDS ORDERED: ONDANSETRON 4 MG/2 ML VIAL IV PRN (09:49)
[2018-07-18] MEDS ORDERED: MEPERIDINE 25 MG/1 ML VIAL IV PRN (09:49)
[2018-07-18] MEDS ORDERED: MEPERIDINE 25 MG/1 ML VIAL ONE (09:59)
[2018-07-18] MEDS ORDERED: CYANOCOBALAMIN 1000 MCG/1 ML VIAL IM ONE (11:10)
[2018-07-18] MEDS: INSULIN LISPRO 100 UNIT/ML SUBCUT SCH ×3 (11:26→20:34)
[2018-07-18] MEDS: FERROUS SULFATE 325 MG TABLET PO SCH ×3 (11:29→20:27)
[2018-07-18] MEDS: glipiZIDE 5 MG TABLET PO SCH ×2 (11:29→14:40)
[2018-07-18] MEDS: MEGESTROL 40 MG TABLET PO SCH ×3 (11:29→20:26)
[2018-07-18] MEDS: PANTOPRAZOLE 40 MG TABLET PO SCH (14:31)
[2018-07-18] MEDS: POTASSIUM CHLORIDE 20 MEQ TABLET PO SCH (14:31)
[2018-07-18] MEDS: LEVOFLOXACIN 500 MG TABLET PO SCH (14:32)
[2018-07-18 16:19] LABS: Hemoglobin 8.7 GM/DL (12.0-16.0)
[2018-07-18] MEDS: GABAPENTIN 100 MG CAPSULE PO SCH ×2 (17:59→20:25)
[2018-07-18] MEDS: ATORVASTATIN 20 MG TABLET PO SCH (18:35)
[2018-07-18] MEDS: amLODIPine 10 MG TABLET PO SCH (20:25)
[2018-07-18] MEDS: METOPROLOL TARTRATE 50 MG TABLET PO SCH (20:26)
[2018-07-18] MEDS: ENOXAPARIN 40 MG/0.4 ML SYRINGE SUBCUT SCH (20:31)
[2018-07-18] MEDS: INSULIN GLARGINE 100 UNIT/ML SUBCUT SCH ×2 (20:35→22:00)
[2018-07-18] MEDS: TRAVOPROST 0.004% OPH SOLN 2.5 ML BOTTLE BOTH EYES SCH (20:37)
[2018-07-19] MEDS: HYDROmorphone 2 MG/1 ML VIAL IV PRN (00:43)
[2018-07-19 05:31] LABS: Basophils % 0.2 % (0.0-0.8); Eosinophils % 0.2 % (0.00-10.9); Hematocrit 26.1 VOL% (35.7-47.0); Hemoglobin 8.7 GM/DL (12.0-16.0); Immature Granulocytes % 0.6 %; Immature Granulocytes Absolute 0.09 #; Lymphocytes # 2.1 10*3/uL (1.4-4.0); Lymphocytes % 12.9 % (21.3-54.2); Mean Corpuscular HGB Conc 33.3 GM/DL (32-36); Mean Corpuscular Hemoglobin 26 PG (27-34); Mean Corpuscular Volume 78.6 FL (87-102); Mean Platelet Volume 9.7 FL (9.6-12.0); Monocytes # 1.6 10*3/uL (0.11-0.8); Monocytes % 9.5 % (1.7-12.7); Neutrophils # 12.5 10*3/uL (1.4-7.4); Neutrophils % 76.6 % (38.7-73.9); Platelet Count 366 T/CUMM (130-400); Red Blood Count 3.32 MC/CUMM (3.8-5.5); Red Cell Distribution Width 17.8 % (9.3-17.3); White Blood Count 16.3 T/CUMM (4-12)
[2018-07-19 06:04] LABS: Calcium 7.9 MG/DL (8.5-10.1); Osmolality,Calculated 279.5 MOS/KG (273-304); Potassium 4.9 MMOL/L (3.5-5.1)
[2018-07-19] MEDS: GABAPENTIN 100 MG CAPSULE PO SCH ×3 (08:11→21:16)
[2018-07-19] MEDS: METOPROLOL TARTRATE 50 MG TABLET PO SCH ×2 (08:11→21:16)
[2018-07-19] MEDS: LEVOFLOXACIN 500 MG TABLET PO SCH (08:11)
[2018-07-19] MEDS: FERROUS SULFATE 325 MG TABLET PO SCH ×3 (08:12→21:16)
[2018-07-19] MEDS: glipiZIDE 5 MG TABLET PO SCH (08:12)
[2018-07-19] MEDS: MEGESTROL 40 MG TABLET PO SCH ×2 (08:13→21:16)
[2018-07-19] MEDS: INSULIN LISPRO 100 UNIT/ML SUBCUT SCH ×4 (09:42→21:22)
[2018-07-19] MEDS: POTASSIUM CHLORIDE 20 MEQ TABLET PO SCH (09:43)
[2018-07-19] MEDS: PANTOPRAZOLE 40 MG TABLET PO SCH (09:43)
[2018-07-19] MEDS ORDERED: LEVOFLOXACIN INJ 500 MG in PREMIX 1 EACH IV SCH (12:30)
[2018-07-19] MEDS: ATORVASTATIN 20 MG TABLET PO SCH (15:36)
[2018-07-19] MEDS: DOXYCYCLINE HYCLATE INJ 100 MG in SODIUM CHLORIDE 0.9% 100 ML IV SCH (15:44)
[2018-07-19 16:27] LABS: Apearance,Urine CLEAR (Clear); Bilirubin,Urine Negative (Negative); Blood, Urine Moderate mg/dL (Negative); Glucose,Urine (UA) >=500 mg/dL (Negative); Ketones,Urine 5 mg/dL (Negative); Mucus,Urine Occasional /LPF (Occasional); Nitrite,Urine Negative (Negative); Protein,Urine 100 MG/DL; RBC,Urine 14 /HPF (0-4); Urine Color Yellow (Yellow); Urine Specific Gravity 1.009 (1.001-1.035); Urine Urobilinogen < 2.0 EU/DL (0.2-1.0); WBC,Urine 1 /HPF (0-6)
[2018-07-19] MEDS: amLODIPine 10 MG TABLET PO SCH (21:15)
[2018-07-19] MEDS: TRAVOPROST 0.004% OPH SOLN 2.5 ML BOTTLE BOTH EYES SCH (21:16)
[2018-07-19] MEDS: ENOXAPARIN 40 MG/0.4 ML SYRINGE SUBCUT SCH (21:26)
[2018-07-20] MEDS: DOXYCYCLINE HYCLATE INJ 100 MG in SODIUM CHLORIDE 0.9% 100 ML IV SCH ×2 (03:13→18:34)
[2018-07-20] MEDS: HYDROmorphone 2 MG/1 ML VIAL IV PRN ×2 (05:00→07:48)
[2018-07-20 06:07] LABS: Basophils % 0.1 % (0.0-0.8); Eosinophils # 0.1 10*3/uL (0.0-0.87); Eosinophils % 0.5 % (0.00-10.9); Hemoglobin 8.1 GM/DL (12.0-16.0); Immature Granulocytes % 0.9 %; Immature Granulocytes Absolute 0.19 #; Lymphocytes # 2.3 10*3/uL (1.4-4.0); Lymphocytes % 11.6 % (21.3-54.2); Mean Corpuscular HGB Conc 32.4 GM/DL (32-36); Mean Corpuscular Hemoglobin 26 PG (27-34); Mean Corpuscular Volume 79.9 FL (87-102); Mean Platelet Volume 10.3 FL (9.6-12.0); Monocytes # 1.7 10*3/uL (0.11-0.8); Monocytes % 8.5 % (1.7-12.7); Neutrophils # 15.7 10*3/uL (1.4-7.4); Neutrophils % 78.4 % (38.7-73.9); Platelet Count 369 T/CUMM (130-400); Red Blood Count 3.13 MC/CUMM (3.8-5.5); Red Cell Distribution Width 18.1 % (9.3-17.3); White Blood Count 20.1 T/CUMM (4-12)
[2018-07-20 06:31] LABS: Calcium 8.1 MG/DL (8.5-10.1); Osmolality,Calculated 279.5 MOS/KG (273-304); Potassium 4.2 MMOL/L (3.5-5.1)
[2018-07-20 06:39] LABS: Lymphocytes 10 % (20-55); Myelocytes 3 %; Platelet Estimate Normal; Polychromasia Few; Segmented Neutrophils 83 % (50-85); Total Cells Counted 100
[2018-07-20 06:40] LABS: Hypochromasia Slight
[2018-07-20] MEDS: INSULIN LISPRO 100 UNIT/ML SUBCUT SCH ×4 (09:42→21:00)
[2018-07-20] MEDS: METOPROLOL TARTRATE 50 MG TABLET PO SCH ×2 (09:44→20:59)
[2018-07-20] MEDS: GABAPENTIN 100 MG CAPSULE PO SCH ×3 (09:44→20:59)
[2018-07-20] MEDS: PANTOPRAZOLE 40 MG TABLET PO SCH (09:45)
[2018-07-20] MEDS: MEGESTROL 40 MG TABLET PO SCH ×2 (09:46→20:59)
[2018-07-20] MEDS: glipiZIDE 5 MG TABLET PO SCH (09:46)
[2018-07-20] MEDS: ATORVASTATIN 20 MG TABLET PO SCH (09:46)
[2018-07-20] MEDS: POTASSIUM CHLORIDE 20 MEQ TABLET PO SCH (09:47)
[2018-07-20] MEDS: LACTOBACILLUS ACIDOPHILUS/BULGARICUS CAPLET PO SCH (09:47)
[2018-07-20] MEDS: FERROUS SULFATE 325 MG TABLET PO SCH ×3 (09:47→21:00)
[2018-07-20] MEDS: DORNASE ALFA 2.5 MG/2.5 ML VIAL RESP TX SCH ×2 (10:28→19:28)
[2018-07-20] MEDS: ALBUTEROL/IPRATROPIUM 3 ML NEB RESP TX SCH ×2 (12:16→19:28)
[2018-07-20] MEDS: MEROPENEM 1,000 MG in SODIUM CHLORIDE 0.9% 100 ML IV SCH ×2 (13:23→21:13)
[2018-07-20] MEDS: LEVOFLOXACIN INJ 750 MG in PREMIX 1 EACH IV SCH (15:43)
[2018-07-20] MEDS: INSULIN GLARGINE 100 UNIT/ML SUBCUT SCH (20:56)
[2018-07-20] MEDS: ENOXAPARIN 40 MG/0.4 ML SYRINGE SUBCUT SCH (20:58)
[2018-07-20] MEDS: TRAVOPROST 0.004% OPH SOLN 2.5 ML BOTTLE BOTH EYES SCH (20:59)
[2018-07-20] MEDS: BISACODYL 5 MG TABLET PO PRN (20:59)
[2018-07-20] MEDS: amLODIPine 10 MG TABLET PO SCH (21:00)
[2018-07-21] MEDS: ALBUTEROL/IPRATROPIUM 3 ML NEB RESP TX SCH ×4 (00:24→19:03)
[2018-07-21] MEDS: MEROPENEM 1,000 MG in SODIUM CHLORIDE 0.9% 100 ML IV SCH ×3 (04:55→21:14)
[2018-07-21 05:53] LABS: Basophils % 0.2 % (0.0-0.8); Eosinophils # 0.3 10*3/uL (0.0-0.87); Eosinophils % 1.4 % (0.00-10.9); Hemoglobin 7.3 GM/DL (12.0-16.0); Immature Granulocytes % 0.9 %; Immature Granulocytes Absolute 0.17 #; Lymphocytes # 2.3 10*3/uL (1.4-4.0); Lymphocytes % 11.9 % (21.3-54.2); Mean Corpuscular HGB Conc 33.2 GM/DL (32-36); Mean Corpuscular Hemoglobin 27 PG (27-34); Mean Platelet Volume 10.6 FL (9.6-12.0); Monocytes # 1.7 10*3/uL (0.11-0.8); Monocytes % 8.6 % (1.7-12.7); Neutrophils # 15.2 10*3/uL (1.4-7.4); Platelet Count 349 T/CUMM (130-400); Red Blood Count 2.75 MC/CUMM (3.8-5.5); Red Cell Distribution Width 18.5 % (9.3-17.3); White Blood Count 19.7 T/CUMM (4-12)
[2018-07-21 06:06] LABS: Calcium 7.6 MG/DL (8.5-10.1); Osmolality,Calculated 278.7 MOS/KG (273-304); Potassium 4.1 MMOL/L (3.5-5.1)
[2018-07-21 06:09] LABS: Alanine Aminotransferase < 9 U/L (13-56); Albumin 1.4 G/DL (3.4-5.0); Alkaline Phosphatase 56 U/L (45-117); Aspartate Amino Transferase 16 U/L (0-37); Blood Urea Nitrogen 16 MG/DL (7-18); Calcium 7.4 MG/DL (8.5-10.1); Glucose 141 MG/DL (74-106); Osmolality,Calculated 277.7 MOS/KG (273-304); Potassium 4.1 MMOL/L (3.5-5.1); Sodium 138 MMOL/L (136-145); Total Protein 5.9 G/DL (6.4-8.3)
[2018-07-21] MEDS: INSULIN LISPRO 100 UNIT/ML SUBCUT SCH ×4 (08:43→21:31)
[2018-07-21] MEDS: DORNASE ALFA 2.5 MG/2.5 ML VIAL RESP TX SCH (09:05)
[2018-07-21] MEDS ORDERED: SODIUM CHLORIDE 0.9% 1,000 ML IV PRN (09:13)
[2018-07-21] MEDS: PANTOPRAZOLE 40 MG TABLET PO SCH (09:18)
[2018-07-21] MEDS: POTASSIUM CHLORIDE 20 MEQ TABLET PO SCH (09:18)
[2018-07-21] MEDS: LACTOBACILLUS ACIDOPHILUS/BULGARICUS CAPLET PO SCH (09:18)
[2018-07-21] MEDS: METOPROLOL TARTRATE 50 MG TABLET PO SCH ×2 (09:18→21:12)
[2018-07-21] MEDS: glipiZIDE 5 MG TABLET PO SCH (09:18)
[2018-07-21] MEDS: ATORVASTATIN 20 MG TABLET PO SCH (09:19)
[2018-07-21] MEDS: GABAPENTIN 100 MG CAPSULE PO SCH ×3 (09:19→21:12)
[2018-07-21] MEDS: MEGESTROL 40 MG TABLET PO SCH ×2 (09:19→21:13)
[2018-07-21] MEDS: FERROUS SULFATE 325 MG TABLET PO SCH ×3 (09:20→21:12)
[2018-07-21] MEDS ORDERED: FUROSEMIDE 40 MG/4 ML VIAL IV ONE (10:07)
[2018-07-21] MEDS: HYDROmorphone 2 MG/1 ML VIAL IV PRN (12:26)
[2018-07-21 19:05] LABS: Hematocrit 29.8 VOL% (35.7-47.0)
[2018-07-21 19:13] LABS: Hemoglobin 9.8 GM/DL (12.0-16.0)
[2018-07-21] MEDS: amLODIPine 10 MG TABLET PO SCH (21:12)
[2018-07-21] MEDS: INSULIN GLARGINE 100 UNIT/ML SUBCUT SCH (21:14)
[2018-07-21] MEDS: BISACODYL 5 MG TABLET PO PRN (21:14)
[2018-07-21] MEDS: ENOXAPARIN 40 MG/0.4 ML SYRINGE SUBCUT SCH (21:15)
[2018-07-21] MEDS: TRAVOPROST 0.004% OPH SOLN 2.5 ML BOTTLE BOTH EYES SCH (21:37)
[2018-07-22] MEDS: ALBUTEROL/IPRATROPIUM 3 ML NEB RESP TX SCH ×4 (00:04→20:38)
[2018-07-22] MEDS: MEROPENEM 1,000 MG in SODIUM CHLORIDE 0.9% 100 ML IV SCH (04:09)
[2018-07-22] MEDS ORDERED: PHENOL 1.4% THROAT SPRAY 177 ML BOTTLE PO PRN (07:16)
[2018-07-22] MEDS ORDERED: ERGOCALCIFEROL 50,000 UNIT CAPSULE PO SCH (07:23)
[2018-07-22] MEDS: INSULIN LISPRO 100 UNIT/ML SUBCUT SCH ×4 (08:00→22:07)
[2018-07-22] MEDS: LACTOBACILLUS ACIDOPHILUS/BULGARICUS CAPLET PO SCH (09:10)
[2018-07-22] MEDS: glipiZIDE 5 MG TABLET PO SCH (09:11)
[2018-07-22] MEDS: PANTOPRAZOLE 40 MG TABLET PO SCH (09:11)
[2018-07-22] MEDS: GABAPENTIN 100 MG CAPSULE PO SCH ×3 (09:11→22:05)
[2018-07-22] MEDS: ATORVASTATIN 20 MG TABLET PO SCH (09:11)
[2018-07-22] MEDS: MEGESTROL 40 MG TABLET PO SCH ×2 (09:11→22:04)
[2018-07-22] MEDS: FERROUS SULFATE 325 MG TABLET PO SCH ×3 (09:11→22:06)
[2018-07-22] MEDS: POTASSIUM CHLORIDE 20 MEQ TABLET PO SCH (09:11)
[2018-07-22] MEDS: METOPROLOL TARTRATE 50 MG TABLET PO SCH ×2 (09:11→22:05)
[2018-07-22] MEDS: LEVOFLOXACIN INJ 750 MG in PREMIX 1 EACH IV SCH (09:11)
[2018-07-22] MEDS ORDERED: MAGNESIUM HYDROXIDE SUSP 30 ML UDCUP PO PRN (20:17)
[2018-07-22] MEDS: LINEZOLID 600 MG TABLET PO SCH (22:05)
[2018-07-22] MEDS: amLODIPine 10 MG TABLET PO SCH (22:05)
[2018-07-22] MEDS: ENOXAPARIN 40 MG/0.4 ML SYRINGE SUBCUT SCH (22:06)
[2018-07-22] MEDS: INSULIN GLARGINE 100 UNIT/ML SUBCUT SCH (22:07)
[2018-07-22] MEDS: TRAVOPROST 0.004% OPH SOLN 2.5 ML BOTTLE BOTH EYES SCH (22:07)
[2018-07-23] MEDS: ALBUTEROL/IPRATROPIUM 3 ML NEB RESP TX SCH ×2 (02:18→07:50)
[2018-07-23] MEDS ORDERED: ALENDRONATE SODIUM 70 MG PO SCH (07:23)
[2018-07-23] MEDS ORDERED: FUROSEMIDE 20 MG TABLET PO SCH (09:00)
[2018-07-23] MEDS ORDERED: BISACODYL 10 MG SUPP RECTAL ONE (09:56)
[2018-07-23] MEDS: INSULIN LISPRO 100 UNIT/ML SUBCUT SCH ×2 (10:02→12:45)
[2018-07-23] MEDS: METOPROLOL TARTRATE 50 MG TABLET PO SCH (10:03)
[2018-07-23] MEDS: FERROUS SULFATE 325 MG TABLET PO SCH (10:04)
[2018-07-23] MEDS: LACTOBACILLUS ACIDOPHILUS/BULGARICUS CAPLET PO SCH (10:04)
[2018-07-23] MEDS: ATORVASTATIN 20 MG TABLET PO SCH (10:04)
[2018-07-23] MEDS: LINEZOLID 600 MG TABLET PO SCH (10:04)
[2018-07-23] MEDS: glipiZIDE 5 MG TABLET PO SCH (10:04)
[2018-07-23] MEDS: MEGESTROL 40 MG TABLET PO SCH (10:05)
[2018-07-23] MEDS: POTASSIUM CHLORIDE 20 MEQ TABLET PO SCH (10:07)
[2018-07-23] MEDS: GABAPENTIN 100 MG CAPSULE PO SCH (10:07)
[2018-07-23] MEDS: PANTOPRAZOLE 40 MG TABLET PO SCH (10:14)
[2018-07-23 12:19] VITALS: BP 153/56
== END 2018-07-23 13:30 | disposition swing bed (61) | DRG 239 ==
LOC: EDSTATUS 12:25 → SUATTDRO 13:33 → N.2W 13:33 → N.5E 13:58
PROVIDERS: ADMIT Internal Medicine; ATTEND Internal Medicine